=== PATIENT | male | born 1985 | race Caucasian/White ===

== ENCOUNTER 2016-11-21 16:36 | Emergency (ER) | payer SELFPAY ==
--- NOTE | 2016-11-21 17:06 | ER Document Report ---
Addendum entered and electronically signed by BHARAT EDWARDS NP 11/21/16 17:07 : Course - Re-evaluation Re-evalutation: 11/21/16 17:07 I have greeted and performed a rapid initial assessment of this patient. A comprehensive ED assessment, evaluation of the patient, analysis of test results , and completion of the medical decision making process will be contacted by additional ED providers. - Vital Signs Vital signs: Temp Pulse Resp BP Pulse Ox 98.1 F 61 16 145/92 H 97 11/21/16 16:46 11/21/16 16:46 11/21/16 16:46 11/21/16 16:46 11/21/16 16:46 Original Note: ED Medical Screen (RME) - General Stated Complaint: DETOX Time seen by provider: 17:01 Mode of Arrival: Ambulatory Information source: Patient Notes: 31-year-old alcoholic for 11 years who binge drinks has been drinking a half a liter of hard liquor for several weeks. He is seeking detox. He has a history of PTSD, TBI, back pain, suicide attempt 04/17/2014 by taking pills and alcohol. He takes anxiety and depression medications. He has been to detox before. He is not suicidal at this time. Physical Exam - Vital signs Vitals: Temp Pulse Resp BP Pulse Ox 98.1 F 61 16 145/92 H 97 11/21/16 16:46 11/21/16 16:46 11/21/16 16:46 11/21/16 16:46 11/21/16 16:46 Course - Vital Signs Vital signs: Temp Pulse Resp BP Pulse Ox 98.1 F 61 16 145/92 H 97 11/21/16 16:46 11/21/16 16:46 11/21/16 16:46 11/21/16 16:46 11/21/16 16:46
[2016-11-21 17:55] LABS: ABSOLUTE EOSINOPHILS # (AUTO) 0.1 10^3/uL (0.0-0.6); ABSOLUTE LYMPHOCYTES (AUTO) 1.5 10^3/uL (0.5-4.7); ABSOLUTE MONOCYTES (AUTO) 0.3 10^3/uL (0.1-1.4); ABSOLUTE NEUT (AUTO) 1.9 10^3/uL (1.7-8.2); BASOPHILS % (AUTO) 0.9 % (0-2); EOSINOPHILS % (AUTO) 3.1 % (0-6); HEMATOCRIT 41.8 % (37.9-51.0); HEMOGLOBIN 14.3 g/dL (13.5-17.0); HGB HCT DIFFERENCE 1.1; LYMPHOCYTES % (AUTO) 38.8 % (13-45); MEAN CORPUSCULAR HEMOGLOBIN 32.6 pg (27.0-33.4); MEAN CORPUSCULAR HGB CONC 34.3 g/dL (32.0-36.0); MEAN CORPUSCULAR VOLUME 95 fl (80-97); MONOCYTES % (AUTO) 7.6 % (3-13); RED BLOOD COUNT 4.39 10^6/uL (4.35-5.55); RED CELL DISTRIBUTION WIDTH 13.4 % (11.5-14.0); SEGMENTED NEUTROPHILS % (AUTO) 49.6 % (42-78); WHITE BLOOD COUNT 3.9 10^3/uL (4.0-10.5)
[2016-11-21 18:11] LABS: ALANINE AMINOTRANSFERASE 27 U/L (21-72); ALBUMIN 5.4 g/dL (3.5-5.0); ALCOHOL 227 mg/dL (NONE DETECTED); ALKALINE PHOSPHATASE 50 U/L (38-126); ANION GAP 16 (5-19); ASPARTATE AMINO TRANSFERASE 38 U/L (17-59); BILIRUBIN,TOTAL 0.4 mg/dL (0.2-1.3); BLOOD UREA NITROGEN 11 mg/dL (7-20); CALCIUM 10.1 mg/dL (8.4-10.2); CARBON DIOXIDE 29 mmol/L (22-30); CHLORIDE 105 mmol/L (98-107); GLUCOSE 93 mg/dL (75-110); POTASSIUM 4.4 mmol/L (3.6-5.0); SODIUM 149.6 mmol/L (137-145)
[2016-11-21 18:12] LABS: CREATININE RESULT 0.89 mg/dL (0.52-1.25); TOTAL PROTEIN 8.1 g/dL (6.3-8.2)
[2016-11-21 19:13] LABS: APPEARANCE,URINE CLEAR; BILIRUBIN,URINE NEGATIVE (NEGATIVE); GLUCOSE, URINE NEGATIVE (NEGATIVE); KETONES,URINE NEGATIVE (NEGATIVE); LEUKOCYTE ESTERASE,URINE NEGATIVE (NEGATIVE); NITRITE,URINE NEGATIVE (NEGATIVE); PROTEIN,URINE NEGATIVE (NEGATIVE); URINE SPECIFIC GRAVITY 1.005; UROBILINOGEN,URINE NEGATIVE mg/dL (<2.0)
[2016-11-21 19:39] LABS: URINE BARBITURATES SCREEN NEGATIVE; URINE METHADONE SCREEN NEGATIVE; URINE OPIATES LOW NEGATIVE; URINE PHENCYCLIDINE SCREEN NEGATIVE
--- NOTE | 2016-11-21 19:44 | ER Document Report ---
[id number]: Ambulatory Information source: Patient TRAVEL OUTSIDE OF THE [place] IN LAST 30 DAYS: No - HPI Patient complains to provider of: Alcohol abuse Onset: Other - DAILY ETOH x 2 WEEKS OR MORE. Quality of pain: No pain Associated Symptoms: Other - ANXIOUS Similar symptoms previously: Yes - MULTIPLE DETOX Rx, LAST IN 2014 Recently seen / treated by doctor: No <DARIO JOINER - Last Filed: 11/26/16 21:14> - General Chief Complaint: Alcohol Withdrawl Stated Complaint: DETOX - Related Data Allergies/Adverse Reactions: No Known Allergies Allergy (Unverified 11/21/16 17:05) Past Medical History - General Information source: Patient - Social History Smoking Status: Never Smoker Chew tobacco use (# tins/day): Yes Frequency of alcohol use: Heavy Drug Abuse: None Lives with: Alone Family History: None Patient has suicidal ideation: No Patient has homicidal ideation: No - Past Medical History Cardiac Medical History: Reports: Hx Hypertension Pulmonary Medical History: Reports: None EENT Medical History: Reports: None Neurological Medical History: Reports: None Endocrine Medical History: Reports: None Renal/ Medical History: Reports: None. Denies: Hx Peritoneal Dialysis Malignancy Medical History: Reports None GI Medical History: Reports: None Musculoskeltal Medical History: Reports None Psychiatric Medical History: Reports: Hx Post Traumatic Stress Disorder Surgical Hx: Negative - Immunizations Hx Diphtheria, Pertussis, Tetanus Vaccination: Yes <DARIO JOINER - Last Filed: 11/26/16 21:14> Review of Systems - Review of Systems Constitutional: No symptoms reported EENT: No symptoms reported Cardiovascular: No symptoms reported Respiratory: No symptoms reported Gastrointestinal: Other - ACHOLIC STOOLS, PAST SEVERAL DAYS Genitourinary: No symptoms reported Musculoskeletal: No symptoms reported Skin: No symptoms reported Neurological/Psychological: No symptoms reported <DARIO JOINER - Last Filed: 11/26/16 21:14> Physical Exam - Vital signs Interpretation: Hypertensive. No: Tachycardic, Tachypneic, Febrile - General General appearance: Appears well, Alert In distress: None - HEENT Head: Normocephalic Eyes: Normal. No: Scleral icterus Conjunctiva: Normal Ears: Normal Nasal: Normal Mouth/Lips: Normal Mucous membranes: Normal Pharynx: Normal Neck: Normal - Respiratory Respiratory status: No respiratory distress Breath sounds: Normal - Cardiovascular Rhythm: Regular Heart sounds: Normal auscultation Murmur: No - Abdominal Inspection: Normal Distension: No distension Bowel sounds: Normal Tenderness: Nontender Organomegaly: No organomegaly - Back Back: Normal - Extremities General upper extremity: Normal inspection General lower extremity: Normal inspection - Neurological Neuro grossly intact: Yes Cognition: Normal Orientation: AAOx4 - Psychological Associated symptoms: Anxious, Depressed - MILDLY - Skin Skin Temperature: Warm Skin Moisture: Dry Skin Color: Normal Skin Turgor: Elastic <DARIO JOINER - Last Filed: 11/26/16 21:14> - Vital signs Vitals: Temp Pulse Resp BP Pulse Ox 98.1 F 61 16 145/92 H 97 11/21/16 16:46 11/21/16 16:46 11/21/16 16:46 11/21/16 16:46 11/21/16 16:46 (PAUL CAPONE) (DARIO JOINER) Course - Laboratory Result Diagrams: 11/21/16 17:19 11/21/16 17:19 <PAUL CAPONE - Last Filed: 11/22/16 12:04> - Laboratory Result Diagrams: 11/21/16 17:19 11/21/16 17:19 <DARIO JOINER - Last Filed: 11/26/16 21:14> - Vital Signs Vital signs: Temp Pulse Resp BP Pulse Ox 97.7 F 57 L 16 136/81 H 98 11/22/16 12:00 11/22/16 12:00 11/22/16 12:00 11/22/16 12:00 11/22/16 12:00 (PAUL CAPONE) (DARIO JOINER) - Laboratory Laboratory results interpreted by me: 11/21/16 11/21/16 17:19 17:19 WBC 3.9 L Sodium 149.6 H Albumin 5.4 H Salicylates < 1.0 L Acetaminophen < 10 L (PAUL CAPONE) (DARIO JOINER) Discharge <PAUL CAPONE - Last Filed: 11/22/16 12:04> <DARIO JOINER - Last Filed: 11/26/16 21:14> - Discharge Clinical Impression: Alcohol abuse Condition: Stable Disposition: HOME, SELF-CARE Additional Instructions: ACUTE ALCOHOL INTOXICATION and ALCOHOL ABUSE: Your evaluation revealed very high levels of alcohol. You can from drinking a large amount of alcohol rapidly! Further, there's the risk of falls , traffic accidents, and fights. A high portion (about 50 percent) of the serious injuries seen in hospital emergency rooms are caused by alcohol. Alcohol overdosage is usually due to an underlying emotional or psychiatric problem. You may benefit from counselling. If "binge" drinking is an ongoing problem for you, or if you drink ANY AMOUNT of alcohol EVERY day, you most likely have a tendency to alcoholism. You should avoid alcohol totally. We can refer you for treatment. Persons with alcohol problems are often also prone to other addictions -- you should discuss any use of medications or drugs with the doctor. You should be watched at home for the next several hours by someone who has not been drinking. Get extra fluids for the next 24 hours. Call the doctor if there is repeated vomiting, increasing headache, decreasing level of alertness, or any other worsening. CHRONIC ALCOHOLISM and ALCOHOL ABUSE: Your evaluation reveals evidence of chronic alcoholism, an addiction to alcohol. The tendency to alcoholism may be inherited. Chronic use of alcohol weakens muscles, causes fatty deposits in the liver , damages the stomach, makes you more prone to infections, and can cause defects in unborn children. In the long run, brain atrophy and cirrhosis of the liver result. You are also at greater risk for certain types of cancer, such as cancer of the mouth, throat, stomach, and liver. Counselling services are available to help you. In-hospital treatment programs often help. Support groups such as Alcoholics Anonymous can be very useful in beating this addiction. Your physician can make a referral for you. As alcoholics often are prone to other addictions, you should discuss your use of any other medications with the doctor. FOLLOW-UP CARE: If you have been referred to a physician for follow-up care, call the physician s office for an appointment as you were instructed or within the next two days. If you experience worsening or a significant change in your symptoms, notify the physician immediately or return to the Emergency Department at any time for re-evaluation. We recommend you follow-up at [facility] tomorrow. Referrals: [facility] [Provider Group] - Follow up tomorrow
--- NOTE | 2016-11-21 20:05 | EKG REPORT ---
SEVERITY:- NORMAL ECG - SINUS RHYTHM : Confirmed by: Anaid Roach MD 21-Nov-2016 20:04:52
[2016-11-21] MEDS ORDERED: TRAZODONE HCL 50 MG TABLET PO SCH (22:00)
[2016-11-21] MEDS ORDERED: CLONIDINE HCL 0.2 MG TABLET PO SCH (22:00)
--- NOTE | 2016-11-22 09:41 | ER Document Report ---
Doctor's Note Notes: 11/22/16 09:40 Rounds: Chart reviewed and patient interviewed. Patient is here for alcohol problem and withdrawal. Carries on normal conversation. Slightly jittery and shaky. Vital signs are all normal. Initial heart rate was 64 and on repeating later, it was 56. Alcohol level was 227. Other labs are all normal. Patient normally takes Lexapro, trazodone, and clonidine (for nightmares) and we have started him on those medications. Patient does not appear to be in withdrawal to me at this time with an alcohol level as high as it was and with normal heart rates. Patient appears to be medically stable for transfer or discharge. Kimberly Perkins M.D.
[2016-11-22] MEDS ORDERED: ESCITALOPRAM OXALATE 10 MG TABLET PO SCH (10:00)
--- NOTE | 2016-11-22 11:39 | PSYCHOLOGICAL NOTE ---
Psych Note - Psych Note Psych Note: Patient presented to [facility] ED with history of alcoholism for 11 years who binge drinks has been drinking a half a liter of hard liquor for several weeks. He is seeking detox. He has a history of PTSD, TBI, back pain, suicide attempt by taking pills and alcohol. He takes anxiety and depression medications. He has been to detox before. He is not suicidal at this time. Patient disclosed that he has been to detox twice; April 2014 and June 2014. [facility] and [facility] Lexapro trazodone Klonopin Naltrexone, and Topiramate. Patient disclosed he feels that his Naltrexone and Topiramate are not working because he still drinks. Clinician discussed substance abuse options in the community to include AA. Patient disclosed that he has "issues" with AA but did not want to get into it. Patient is alert and orientated to person place time and circumstance. Mood is euthymic with congruent affect. Patient denies suicidal homicidal ideation. Patient denies this auditory and visual hallucinations; no delusions are noted. Thought process is currently logical, organized and linear. Conversational speech was within normal rate tone and prosody. Eye contact was well maintained. Intellectual abilities appear to be within average range. Attention and concentration were good. Insight, judgment, impulse control are poor concerning alcohol abuse. 291.9 (F 10.99) Unspecified Alcohol-Related Disorder Impression\\plan: Patient is psychiatrically cleared for discharge; patient does not meet IVC criteria per [place] GS 122. Patient denies suicidal homicidal ideation. Patient agrees to seek outpatient services for substance abuse through [facility]. Dr. Ag was consulted on this patient; attending physician is in agreement with recommendations and disposition.
[2016-11-22 12:56] VITALS: BP 136/81
== END 2016-11-22 12:30 | disposition home or self-care (01) ==
LOC: ER 16:36
DX: F10.239 Alcohol dependence with withdrawal, unspecified (principal); Y90.7 Blood alcohol level of 200-239 mg/100 ml; I10 Essential (primary) hypertension; F43.10 Post-traumatic stress disorder, unspecified; F41.9 Anxiety disorder, unspecified; F32.9 Major depressive disorder, single episode, unspecified; F51.5 Nightmare disorder; Z79.899 Other long term (current) drug therapy
CPT/HCPCS: 36415; 80053; 80307; 81001; 85025; 93005; 93010; 99285

== ENCOUNTER 2016-12-22 17:27 | Emergency (ER) | payer OTHER ==
[2016-12-22] MEDS ORDERED: MORPHINE SULFATE 10 MG/ML INJ IM ONE (17:32)
[2016-12-22] MEDS ORDERED: ONDANSETRON 4 MG TAB.RAPDIS PO ONE (17:33)
--- NOTE | 2016-12-22 17:34 | ER Document Report ---
ED Medical Screen (RME) - General Stated Complaint: ELBOW INJURY Time seen by provider: 17:31 Mode of Arrival: Ambulatory Information source: Patient Notes: Patient reports injury to right elbow today while skateboarding. Unable to move the arm at the elbow. Denies previous history of injury to elbow. I have greeted and performed a rapid initial assessment of this patient. A comprehensive ED assessment and evaluation of the patient, analysis of test results and completion of the medical decision making process will be conducted by additional ED providers. TRAVEL OUTSIDE OF THE [place] IN LAST 30 DAYS: No - Related Data Allergies/Adverse Reactions: No Known Allergies Allergy (Verified 12/22/16 17:31) Past Medical History - Past Medical History Cardiac Medical History: Reports: Hx Hypertension Renal/ Medical History: Denies: Hx Peritoneal Dialysis Psychiatric Medical History: Reports: Hx Post Traumatic Stress Disorder - Immunizations Hx Diphtheria, Pertussis, Tetanus Vaccination: Yes Physical Exam - Extremities Notes: Patient holding arm straight down, unable to move arm. Positive deformity at right elbow.
[2016-12-22] MEDS ORDERED: HYDROMORPHONE HCL INJ/PF 2 MG/ML AMPULE IM ONE (18:24)
--- NOTE | 2016-12-22 18:30 | ER Document Report ---
ED General - General Chief Complaint: Elbow Injury Stated Complaint: ELBOW INJURY Mode of Arrival: Ambulatory Information source: Patient Notes: 31-year-old male presents with complaints of right elbow pain after a skateboard incident just prior to arrival. Patient denies any other complaints states he is unable to move his right arm TRAVEL OUTSIDE OF THE [place] IN LAST 30 DAYS: No - HPI Onset: Just prior to arrival Onset/Duration: Sudden Quality of pain: Achy Severity: Moderate Pain Level: 3 Associated symptoms: Other Exacerbated by: Movement Relieved by: Denies Similar symptoms previously: No Recently seen / treated by doctor: No - Related Data Allergies/Adverse Reactions: No Known Allergies Allergy (Verified 12/22/16 17:31) Past Medical History - General Information source: Patient - Social History Smoking Status: Never Smoker Cigarette use (# per day): No Chew tobacco use (# tins/day): No Smoking Education Provided: No Frequency of alcohol use: None Drug Abuse: None Family History: None Patient has suicidal ideation: No Patient has homicidal ideation: No - Past Medical History Cardiac Medical History: Reports: Hx Hypertension Renal/ Medical History: Denies: Hx Peritoneal Dialysis Psychiatric Medical History: Reports: Hx Post Traumatic Stress Disorder - Immunizations Hx Diphtheria, Pertussis, Tetanus Vaccination: Yes Review of Systems - Review of Systems Notes: REVIEW OF SYSTEMS: CONSTITUTIONAL : Denies fever, chills, or sweats. Denies recent illness. EENT: Denies eye, ear, throat, or mouth pain or symptoms. Denies nasal or sinus congestion or discharge. Denies throat, tongue, or mouth swelling or difficulty swallowing. CARDIOVASCULAR: Denies chest pain. Denies palpitations or racing or irregular heart beat. Denies ankle edema. RESPIRATORY: Denies cough, cold, or chest congestion. Denies shortness of breath, difficulty breathing, or wheezing. GASTROINTESTINAL: Denies abdominal pain or distention. Denies nausea, vomiting , or diarrhea. Denies blood in vomitus, stools, or per rectum. Denies black, tarry stools. Denies constipation. GENITOURINARY: Denies difficulty urinating, painful urination, burning, frequency, blood in urine, or discharge. MUSCULOSKELETAL: Right elbow pain SKIN: Denies rash, lesions or sores. HEMATOLOGIC : Denies easy bruising or bleeding. LYMPHATIC: Denies swollen, enlarged glands. NEUROLOGICAL: Denies confusion or altered mental status. Denies passing out or loss of consciousness. Denies dizziness or lightheadedness. Denies headache. Denies weakness or paralysis or loss of use of either side. Denies problems with gait or speech. Denies sensory loss, numbness, or tingling. Denies seizures. PSYCHIATRIC: Denies anxiety or stress. Denies depression, suicidal ideation, or homicidal ideation. ALL OTHER SYSTEMS REVIEWED AND NEGATIVE. Dictation was performed using [employer] voice recognition software PHYSICAL EXAMINATION: GENERAL: Well-appearing, well-nourished and in no acute distress. HEAD: Atraumatic, normocephalic. EYES: Pupils equal round and reactive to light, extraocular movements intact, sclera anicteric, conjunctiva are normal. ENT: Nares patent, oropharynx clear without exudates. Moist mucous membranes. NECK: Normal range of motion, supple without lymphadenopathy LUNGS: Breath sounds clear to auscultation bilaterally and equal. No wheezes rales or rhonchi. HEART: Regular rate and rhythm without murmurs ABDOMEN: Soft, nontender, nondistended abdomen. No guarding, no rebound. No masses appreciated. Musculoskeletal: Edema of the right elbow with tenderness and range of motion NEUROLOGICAL: Cranial nerves grossly intact. Normal speech, normal gait. Normal sensory, motor exams PSYCH: Normal mood, normal affect. SKIN: Warm, Dry, normal turgor, no rashes or lesions noted. Physical Exam - Vital signs Vitals: Temp Pulse Resp BP Pulse Ox 98.4 F 46 L 28 H 129/83 H 97 12/22/16 17:31 12/22/16 17:31 12/22/16 17:31 12/22/16 17:31 12/22/16 17:31 Course - Re-evaluation Re-evalutation: 12/22/16 18:28 X-ray is consistent with a radial head fracture with mild dislocation, patient will be placed in a splint and is otherwise stable to follow-up with orthopedics. Patient given pain control immediately on arrival After performing a Medical Screening Examination, I estimate there is LOW risk for INTRACRANIAL HEMORRHAGE, UNSTABLE SPINE FRACTURE, CENTRAL CORD SYNDROME, CAUDA EQUINA, THORACIC AORTIC DISSECTION, PNEUMOTHORAX, PERFORATED BOWEL, RUPTURED ABDOMINAL AORTIC ANEURYSM, ACUTE TENDON RUPTURE, COMPARTMENT SYNDROME, or OPEN FRACTURE, thus I consider the discharge disposition reasonable. Also, there is no evidence or peritonitis, sepsis, or toxicity. The patient and I have discussed the diagnosis and risks, and we agree with discharging home to follow-up with their primary doctor with the understanding that symptoms and presentations can change. We also discussed returning to the Emergency Department immediately if new or worsening symptoms occur. We have discussed the symptoms which are most concerning (e.g., bloody stool, fever, changing or worsening pain, vomiting) that necessitate immediate return. - Vital Signs Vital signs: Temp Pulse Resp BP Pulse Ox 98.4 F 46 L 28 H 129/83 H 97 12/22/16 17:31 12/22/16 17:31 12/22/16 17:31 12/22/16 17:31 12/22/16 17:31 - Diagnostic Test Radiology reviewed: Image reviewed, Reports reviewed Procedures - Immobilization Right Elbow Time completed: 18:35 Pre-Proc Neuro Vasc Exam: Normal Immobilizer type: Long arm posterior, Sling Performed by: PCT Post-Proc Neuro Vasc Exam: Normal Alignment checked and good: Yes Discharge - Discharge Clinical Impression: Radial head fracture, closed Qualifiers: Encounter type: initial encounter Fracture alignment: displaced Laterality: right Qualified Code(s): S52.121A - Displaced fracture of head of right radius, initial encounter for closed fracture Elbow pain Qualifiers: Laterality: right Qualified Code(s): M25.521 - Pain in right elbow Condition: Stable Disposition: HOME, SELF-CARE Instructions: Radial Head Fracture ([facility]) Prescriptions: Oxycodone HCl/Acetaminophen [Percocet 5-325 mg Tablet] 1 - 2 tab PO Q4H PRN #25 tablet PRN Reason: Referrals: KARIME ORNELAS DO [ACTIVE STAFF] - Follow up tomorrow
[2016-12-22 19:31] VITALS: BP 135/75
== END 2016-12-22 19:25 | disposition home or self-care (01) ==
LOC: ER 17:27
PROC: 2W38X1Z Immobilization of Right Upper Extremity using Splint (ICD-10-PCS; principal; 2016-12-22)
DX: S52.121A Displaced fracture of head of right radius, initial encounter for closed fracture (principal); V00.131A Fall from skateboard, initial encounter; Y93.51 Activity, roller skating (inline) and skateboarding; I10 Essential (primary) hypertension
CPT/HCPCS: 99283; 96372; 73080; 29105; S0119; J2270; J1170